=== PATIENT | male | born 1955 | race Caucasian/White ===

== ENCOUNTER 2021-12-25 12:30 | Emergency (ER) | payer OTHER, SELFPAY ==
[2021-12-25 12:41] VITALS: BP 183/86; PULSE 86; RESP 16; TEMP 36.9; O2SAT 98
[2021-12-25 13:20] VITALS: BP 183/86; PULSE 86; RESP 16; TEMP 36.9; O2SAT 98
--- NOTE | 2021-12-25 13:34 | ED.BACK ---
HPI - Back Pain/Injury General Chief Complaint: Back Pain/Injury Stated Complaint: severe back pain Time Seen by Provider: 12/25/21 13:10 Source: patient and RN notes reviewed Mode of arrival: ambulatory Limitations: no limitations History of Present Illness HPI Narrative: Patient presents today complaining of left-sided low back pain x5 days, that is now radiating to the left thigh. Patient was seen last week by his PCP who put him on some muscle relaxers. He went into the office 2 days ago and was given a Kenalog shot, which has not helped. Currently rates his pain 7/10 and has been taking Aleve as well as some muscle relaxers without much relief. Pain increases with walking and movement. Denies numbness or tingling in the extremities. Denies any loss of bowel or bladder control. States that over the last month he has been experiencing some left-sided low back pain that has been increasing while using his rowing machine. He used to be able to use the machine for 30 minutes, but was recently now down only to 10 minutes before he had to stop. Denies any other recent injury or trauma. MD elicited complaint: back pain Related Data Home Medications Medication Instructions Recorded Confirmed amlodipine-atorvastatin tablet 12/25/21 atenolol 12/25/21 insulin aspart U-100 [Novolog SUBCUT 12/25/21 Flexpen U-100 Insulin] insulin glargine [Lantus Solostar SUBCUT 12/25/21 U-100 Insulin] quinapril-hydrochlorothiazide tablet 12/25/21 sertraline mg 12/25/21 tizanidine mg 12/25/21 Allergies Allergy/AdvReac Type Severity Reaction Status Date / Time No Known Allergies Allergy Verified 12/25/21 12:49 Review of Systems Review of Systems: CONSTITUTIONAL: Denies body aches, fever, chills, or sweats. EYES: Denies visual changes, redness, or discharge. ENT: Denies rhinorrhea, congestion, sore throat, or otalgia. CARDIOVASCULAR: Denies chest pain, palpitations, or edema. RESPIRATORY: Denies cough or dyspnea. GASTROINTESTINAL: Denies abdominal pain, nausea, vomiting, or diarrhea. GENITOURINARY: Denies dysuria or hematuria. SKIN: Denies rash, itching, or wounds. MUSCULOSKELETAL: Denies joint pain, or myalgia.+ Low back pain NEUROLOGIC: Denies headache, numbness, tingling, or weakness. PSYCH: Denies depression or anxiety. [facility] Past Medical History Medical History (Updated 12/25/21 @ 15:38 by Rosa Isela Ogden, [facility], ) High cholesterol Hypertension Type 1 diabetes Comments At time of signature, I have reviewed and agree with nursing past medical, surgical, social and family history unless otherwise noted. Please see nursing chart for further information. There is no relevant family history pertinent to the presenting complaint Exam Narrative: GENERAL: Well-appearing, well-nourished, and in no acute distress. HEAD: Normocephalic, atraumatic. EYES: EOMI. No redness or drainage. Conjunctivae normal. ENT: Mucous membranes pink and moist. NECK: Normal AROM. CHEST: No respiratory distress. MUSCULOSKELETAL: No bony tenderness of the spine. 2 rather large palpable muscle spasms to the left lower lumbar paraspinal musculature. Muscle tenderness extends to the left SI joint. Saddle sensation intact. Distal sensation intact. Capillary refill normal. Strength normal bilaterally. EXTREMITIES: Normal range of motion. No edema. SKIN: Warm, dry, no rash. Capillary refill normal. Normal skin turgor. NEURO: No focal deficits. Alert and oriented x3. Gait steady. PSYCH: Normal affect. No signs of depression or anxiety. Course Course Emergency Course: Discussed with patient that since the Kenalog did not help, we could start him on a short course of oral steroid, with the understanding that this would raise his blood sugar for short period of time. He has agreed. We will also prescribe him a short course of some pain medication to take in conjunction with his muscle relaxers. Level of Care: Express Care Visit Dottie
== END 2021-12-25 13:40 | disposition home or self-care (01) ==
PROVIDERS: Emergency Provider Nurse Practitioner
DX: M54.42 Lumbago with sciatica, left side (principal); E78.00 Pure hypercholesterolemia, unspecified; I10 Essential (primary) hypertension; E10.9 Type 1 diabetes mellitus without complications
CPT/HCPCS: 99203; G0463

== ENCOUNTER 2022-10-05 12:25 | Outpatient (CLI) | payer OTHER, SELFPAY ==
--- NOTE | 2022-10-05 13:38 | ECG_ITS ---
Measurements Intervals Hermann Rate: 72 P: 46 NE: 191 QRS: 48 QRSD: 87 T: 39 QT: 383 QTc: 421 Interpretive Statements SINUS RHYTHM VENTRICULAR PREMATURE COMPLEX BASELINE ARTIFACT- I, II, III, AVR, AVL, AVF BORDERLINE ECG NO PREVIOUS ECG AVAILABLE FOR COMPARISON Electronically Signed On 10-05-2022 13:51:34 LEARNING FACILITATOR by Albert Jordan D.O.
[2022-10-05 14:59] LABS: Anion Gap 4 mmol/L (8-16); Blood Urea Nitrogen 15 mg/dL (9-20); Calcium 8.8 mg/dL (8.4-10.2); Carbon Dioxide 35 mmol/L (22-30); Chloride 92 mmol/L (98-107); Estimated Glomerular Filt Rate > 60; Glucose 104 mg/dL (65-110); Potassium 3.3 mmol/L (3.4-5.0); Sodium 131 mmol/L (137-145)
== END 2022-10-05 12:26 | disposition home or self-care (01) ==
LOC: ANHSURGERY 13:29
PROVIDERS: Anesthesiology; PCP Internal Medicine; Visit Provider Surgery
DX: K40.90 Unilateral inguinal hernia, without obstruction or gangrene, not specified as recurrent (principal); E10.9 Type 1 diabetes mellitus without complications; I10 Essential (primary) hypertension; Z01.818 Encounter for other preprocedural examination; R94.31 Abnormal electrocardiogram [ECG] [EKG]
CPT/HCPCS: 36415; 80048; 86850; 86900; 86901; 93005

== ENCOUNTER 2022-10-11 00:06 | Day surgery (SDC) | payer OTHER, SELFPAY ==
[2022-10-04 15:39] VITALS: BMI 25.2
--- NOTE | 2022-10-04 16:12 | PC.NURSE ---
Report to the Outpatient Waiting Room, entrance under the green pavilion located off [facility], at time _12:00PM on date __10/11/22 . Planned Procedure Time: __2:00PM . Time changes happen often and if your time is changed the preop area will call you the afternoon before. - You and your visitor will be asked to self-screen and do not enter if you have any COVID symptoms. - Only one visitor is requested with a max of two and NO children visitors are allowed at this time. - The patient visitor may be requested to leave or wait in car when not with patient due to distancing restrictions. - A mask is optional within the hospital. Patients may have clear liquids (water, carbonated beverages, clear teas, apple juice) until 3 hours prior to surgery with a maximum of 20 ounces. - No food from midnight until time of surgery Take the following medications with a SIP of water the morning of surgery: ___AMLODIPINE, ATENOLOL, SERTRALINE, CAN TAKE 1/2 AM INSULIN(WHICH IS SLIDING SCALE) Medications to discontinue per physician HOLD ALL VITAMINS/SUPPLEMENTS 3 DAYS PRE-OP Date to take last dose____10/07/22 Please no make-up, nail citizen of [place], hairspray, perfume, deodorant, or body powder the day of surgery. No jewelry (including any body piercings) or valuables the day of surgery, leave them at home. Please take a shower or bath the night before, or the morning of, surgery with an antibacterial soap. Wear comfortable, loose fitting clothing. Children are encouraged to wear pajamas. - Jewelry must be removed prior to entering the operating room. Rings and piercings that are not removed may be cut off. - The hospital will not accept responsibility for valuables. - Please leave all valuables, including medications, at home the day of surgery. If you are going home after surgery, a licensed hazmat cdl driver must drive you home. - NO public transportation without another adult if you receive anesthesia. - We recommend that an adult stay with you for 24 hours following discharge. - We also recommend that you do not drive, make important decision, drink alcoholic beverages, or take any drugs that were not prescribed by your health care provider for at least 24 hours after your discharge time. Follow any additional instructions given to you from your surgeon. HIBICLENS SHOWER MORNING OF SURGERY If you or anyone in your household have experienced Covid symptoms in the past week, please notify your surgeon or the nurse liaison at the phone number below for possible testing. Telephone instructions given to _PATIENT and asked if any additional questions and then verbalized understanding. Patient advised to call surgeon office or pre surgery nurse liaison [phone] if any additional questions.
--- NOTE | 2022-10-10 09:27 | WPDANESEPPF ---
Anes - Initial Pre Proc Eval Procedure: Operation Date: 10/11/22 14:00 Proposed Procedures p Laparoscopic Right Inguinal Hernia Repair with Mesh Davinci Assisted - Nick Conner DO Date/Time: 10/10/22 09:27 Surgeon: Nick Conner DO Pre Op Diagnosis: right inguinal hernia Patient Data Age: 67 Gender: M Height: 1.8 m Weight: 82 kg Allergies Allergy/AdvReac Type Severity Reaction Status Date / Time No Known Allergies Allergy Verified 10/11/22 12:03 Home Medications Medication Instructions Recorded Confirmed Type amlodipine 10 mg-atorvastatin 10 1 tablet PO QAM 12/25/21 10/11/22 History mg tablet atenolol 25 mg tablet 50 mg PO QAM 12/25/21 10/11/22 History insulin aspart U-100 100 unit/mL See Rx Instructions .Route .COMPLEX 12/25/21 10/11/22 History (3 mL) subcutaneous pen (Novolog FlexPen U-100 Insulin aspart) insulin glargine 100 unit/mL (3 28 unit subcut HS 12/25/21 10/11/22 History mL) subcutaneous pen (Lantus Solostar U-100 Insulin) quinapril 20 3 tablet PO QAM 12/25/21 10/11/22 History mg-hydrochlorothiazide 12.5 mg tablet sertraline 50 mg tablet 50 mg PO QAM 12/25/21 10/11/22 History cholecalciferol (vitamin D3) 125 125 mcg PO DAILY 06/26/22 10/11/22 History mcg (5,000 unit) capsule docusate sodium 100 mg capsule 100 mg PO DAILY 06/26/22 10/11/22 History (Colace) gabapentin 300 mg capsule 300 mg PO HS 06/26/22 10/11/22 History multivitamin 1 tablet PO DAILY 06/26/22 10/11/22 History omega 2-kho-ocb-fish oil 1,000 mg 1 cap PO DAILY 06/26/22 10/11/22 History (120 mg-180 mg) capsule (Fish Oil) potassium chloride 10 mEq 10 meq PO DAILY 06/26/22 10/11/22 History tablet,extended release auitojzn-cjj-K. coag-B. 1 tablet PO DAILY 10/04/22 10/11/22 History subtilis-inulin 1 billion cell-1 gram chew tab (Culturelle Probiotic-Multivit) Patient hx anesthesia problems: none Family hx anesthesia problems: none Results Review: All pre-operative results and documents have been reviewed as part of the pre-operative evaluation. [facility] Past Medical History Medical History (Updated 10/10/22 @ 09:27 by Nando Martin DO) Anxiety Depression High cholesterol Hypertension Prostate cancer Type 1 diabetes Surgical History Surgical History (Updated 07/04/22 @ 10:14 by Danielle Del Cid) H/O left inguinal hernia repair Open repair. December 2021, [facility] History of prostate surgery prostate brachytherapy History of tonsillectomy Family History Family History Father Diabetes mellitus Heart disease Malignant neoplasm of prostate Mother Heart disease Cerebrovascular accident Hypertension Social History Social History Smoking status: Never smoker Alcohol intake: former Substance use: never Living arrangements: alone Spiritual care concerns: No Anes - Eval Final PreProcedure Day of Procedure 10/10/22 09:27 Patient weight: overweight Heart: regular rate and rhythm Lungs: clear to auscultation Airway: Mallampati scale class 1 Neurological: alert and oriented Last oral intake: >/= 8 hours ASA classification: III Emergent: no Anesthetic plan: proceed Anesthesia type and monitoring: general ETT and standard monitoring Results Review: All pre-operative results and documents have been reviewed as part of the pre-operative evaluation. Informed Consent: The patient's anesthetic plan and its attendant risks and benefits were discussed with the patient/family/POA. Questions were solicited and answers provided to the satisfaction of the patient/family/POA.
[2022-10-11] VITALS (9 sets, daily range): BP systolic 108–168; BP diastolic 60–83; PULSE 73–82; RESP 15–20; TEMP 36.7–37.3; O2SAT 95–100
[2022-10-11] MEDS: ACETAMINOPHEN 500 MG TABLET 1000 MG PO (12:28)
[2022-10-11] MEDS: LACTATED RINGERS 1,000 ML 30 ML IV CONT ×2 (12:35→15:14)
[2022-10-11] MEDS: KETOROLAC 15 MG/ML VIAL (*BKC) IV PUSH (12:38)
[2022-10-11 12:41] LABS: Glucose Point of Care 160 mg/dl (65-105)
--- NOTE | 2022-10-11 13:16 | WPDHPUPDATE1 ---
History and Physical Update Update Date/Time: 10/11/22 13:16 History and Physical has been reviewed, including an updated exam of the patient. There are NO changes in the patient's condition. Risks, benefits, and alternatives have been discussed and questions answered. Patient agrees to proceed with procedure.
--- NOTE | 2022-10-11 13:16 | PM.IMHP ---
H&P: HPI History of Present Illness Date/Time: 10/11/22 13:16 Chief Complaint: Right inguinal hernia Narrative: This is a 67-year-old man who presents for right inguinal hernia repair. He was seen in the office in July now presents for surgery. He denies any changes since last seen in the office. Review of Systems Review of Systems: All systems reviewed & are unremarkable except as noted in HPI and below Constitutional: Constitutional: Denies chills, Denies fever(s), Denies headache(s) and Denies weight loss Eyes: Eyes: Denies change in vision ENT: Denies dizziness, Denies headache(s), Denies neck mass and Denies throat swelling Cardiovascular: Cardiovascular: Denies chest pain, Denies lightheadedness and Denies dyspnea Respiratory: Respiratory: Denies cough, Denies dyspnea and Denies wheezing Gastrointestinal: Gastrointestinal: Denies abdominal pain, Denies change in bowel habits, Denies nausea and Denies vomiting Genitourinary: Genitourinary: Denies hematuria and Denies dysuria Musculoskeletal: Musculoskeletal: Reports as per HPI Integumentary/Breasts: Skin/Breast: Reports as per HPI Neurologic: Denies dizziness and Denies headache(s) Allergic/Immunologic: Allergic/Immunologic: Denies throat swelling and Denies wheezing [facility] Past Medical History Medical History (Updated 10/10/22 @ 09:27 by Nando Martin DO) Anxiety Depression High cholesterol Hypertension Prostate cancer Type 1 diabetes Surgical History Surgical History (Updated 07/04/22 @ 10:14 by Danielle Del Cid) H/O left inguinal hernia repair Open repair. December 2021, [facility] History of prostate surgery prostate brachytherapy History of tonsillectomy Family History Family History Father Diabetes mellitus Heart disease Malignant neoplasm of prostate Mother Heart disease Cerebrovascular accident Hypertension Social History Social History Smoking status: Never smoker Alcohol intake: former Substance use: never Living arrangements: alone Spiritual care concerns: No Meds Home Medications and Allergies Home Medications Medication Instructions Recorded Confirmed Type amlodipine 10 mg-atorvastatin 10 1 tablet PO QAM 12/25/21 10/11/22 History mg tablet atenolol 25 mg tablet 50 mg PO QAM 12/25/21 10/11/22 History insulin aspart U-100 100 unit/mL See Rx Instructions .Route .COMPLEX 12/25/21 10/11/22 History (3 mL) subcutaneous pen (Novolog FlexPen U-100 Insulin aspart) insulin glargine 100 unit/mL (3 28 unit subcut HS 12/25/21 10/11/22 History mL) subcutaneous pen (Lantus Solostar U-100 Insulin) quinapril 20 3 tablet PO QAM 12/25/21 10/11/22 History mg-hydrochlorothiazide 12.5 mg tablet sertraline 50 mg tablet 50 mg PO QAM 12/25/21 10/11/22 History cholecalciferol (vitamin D3) 125 125 mcg PO DAILY 06/26/22 10/11/22 History mcg (5,000 unit) capsule docusate sodium 100 mg capsule 100 mg PO DAILY 06/26/22 10/11/22 History (Colace) gabapentin 300 mg capsule 300 mg PO HS 06/26/22 10/11/22 History multivitamin 1 tablet PO DAILY 06/26/22 10/11/22 History omega 7-nne-dya-fish oil 1,000 mg 1 cap PO DAILY 06/26/22 10/11/22 History (120 mg-180 mg) capsule (Fish Oil) potassium chloride 10 mEq 10 meq PO DAILY 06/26/22 10/11/22 History tablet,extended release yfiefnes-qng-S. coag-B. 1 tablet PO DAILY 10/04/22 10/11/22 History subtilis-inulin 1 billion cell-1 gram chew tab (Culturelle Probiotic-Multivit) Allergies Allergy/AdvReac Type Severity Reaction Status Date / Time No Known Allergies Allergy Verified 10/11/22 12:03 Vital Signs Vital Signs - 24 hr 10/11/22 12:03 Temperature 37.3 C Pulse Rate 75 Respiratory Rate 20 Blood Pressure 168/77 H Pulse Oximetry 99 Oxygen Delivery Room Air Exam Const:
[2022-10-11] MEDS: ceFAZolin 2 GM/D5W 50 ML 2 GM/50 ML BAG IVPB (13:47)
[2022-10-11] MEDS: BUPIVACAINE/EPINEPHRINE 0.5% 30 ML VIAL INFILTRATE (14:08)
--- NOTE | 2022-10-11 15:07 | W.PM.PROC2 ---
Procedure Note - Detailed Date of Procedure 10/11/22 Pre-op Diagnosis right inguinal hernia Post-op Diagnosis Same (Indirect right inguinal hernia) Procedure Performed Laparoscopic right inguinal hernia repair with mesh, da Jann assisted Surgeon Nick Conner DO Anesthesia General and Local (0.5% bupivacaine with epinephrine) Indications This is a 67-year-old man who presented with a right groin bulge that he noticed about 3 months ago. He was having some initial pain with this, but is no longer complaining of that. Bulge has gotten larger. He denies any change in bowel habits. Discussions were made with the patient about treatment options and decision was made to proceed with robotic assisted laparoscopic right inguinal hernia repair with mesh. Findings Laparoscopic right inguinal hernia repair was performed. The patient was found to have an indirect right inguinal hernia that initially was containing a loop of ileum. This appeared soft and easily reducible. The hernia was repaired using a large right Bard 3DMax mid mesh. A robotic transabdominal preperitoneal approach was utilized. The mesh was secured overlying the entire right myopectineal orifice. Description of Procedure Procedure as well as risks, benefits, and alternatives were discussed with the patient. Written consent was obtained and placed in chart prior to procedure. Patient was brought back to surgical suite. He was placed supine on operating table. Time-out was done to confirm patient and procedure. He was then intubated by Anesthesia Department. His abdomen was prepped and draped in sterile fashion using chlorhexidine prep. 0.5% bupivacaine with epinephrine was infiltrated at each location for incision. A 12 millimeter transverse incision was made just superior to the umbilicus using a 15 blade scalpel. Blunt dissection was carried out down to the linea alba. A vertical incision was made at the linea alba using a 15 blade scalpel. The peritoneum was then bluntly entered. A 12 millimeter trocar was inserted and carbon dioxide insufflation was used to create a pneumoperitoneum. A camera was inserted and the abdominal cavity was inspected. The patient was placed in slight Trendelenburg position. An 8 millimeter incision was made on the right lateral abdomen and an 8 millimeter trocar was inserted under direct visualization. Another 8 millimeter incision was made in the left lateral abdomen and an 8 millimeter trocar was inserted under direct visualization. The robotic arms were brought up to the patient's bedside and secured to the ports. The camera and instruments were inserted. I then moved over to the robotic console and took control of the camera and instruments. After careful inspection of the abdominal cavity, I began scoring the peritoneum along the right lower quadrant using scissors with electrocautery. The preperitoneal plane was entered and this was carefully dissected caudally along the inferior epigastric vessels. Careful dissection with scissors with electrocautery and blunt dissection was used to continue this dissection. I dissected far enough laterally to allow for mesh placement, and also dissected medially to identify the pubic arch and Lamin's ligament. The hernia sac was identified and carefully dissected posteriorly. The cord contents were also identified and the peritoneum was carefully dissected far enough posteriorly to allow for mesh placement. Once an adequate pocket was created, I then placed the mesh within the preperitoneal pocket and carefully unfolded it. The mesh was centered on the hernia defect with adequate overlap circumferentially. The inferior edge of the mesh was inspected to ensure that it was far enough away from the peritoneal edge. The mesh appeared in proper position overlying the entire myopectineal orifice. The mesh was secured using 3-0 Vicryl simple interrupted sutures in Lamin's ligament, the superior medial edge, and
[2022-10-11 15:28] LABS: Glucose Point of Care 241 mg/dl (65-105)
--- NOTE | 2022-10-11 17:16 | SUR.PHASEII ---
1720 PT MEETS ANESTHESIA DISCHARGE CRITERIA. PT DRESSED & WAITING ON HIS RIDE HOME.
== END 2022-10-11 17:45 | disposition home or self-care (01) ==
PROVIDERS: PCP Internal Medicine; Visit Provider Surgery
PROC: 8E0Y4CZ Robotic Assisted Procedure of Lower Extremity, Percutaneous Endoscopic Approach (ICD-10-PCS; CPT 49650; principal; 2022-10-11 14:00)
DX: K40.90 Unilateral inguinal hernia, without obstruction or gangrene, not specified as recurrent (principal); E10.9 Type 1 diabetes mellitus without complications; I10 Essential (primary) hypertension; E78.00 Pure hypercholesterolemia, unspecified; F41.9 Anxiety disorder, unspecified; F32.A Depression, unspecified; Z85.46 Personal history of malignant neoplasm of prostate; Z79.4 Long term (current) use of insulin
CPT/HCPCS: 49650; S2900; 36415; 80048; 82948; 86850; 86900; 86901; 93005; A9270; C1781; J0690; J1100; J1170; J1885; J2250; J2405; J2704; J2710; J3010; J7120

== ENCOUNTER 2022-10-23 10:01 | Outpatient (CLI) | payer OTHER, SELFPAY ==
[2022-10-23 11:37] LABS: Hemoglobin A1C 6.5 % (<5.7)
== END 2022-10-23 10:02 | disposition home or self-care (01) ==
PROVIDERS: PCP Internal Medicine; Visit Provider Urology
DX: N52.9 Male erectile dysfunction, unspecified (principal); Z01.818 Encounter for other preprocedural examination
CPT/HCPCS: 36415; 83036; 87086

== ENCOUNTER 2022-11-15 01:01 | Day surgery (SDC) | payer OTHER, SELFPAY ==
[2022-10-23 10:24] VITALS: BP 141/76; PULSE 71; RESP 16; TEMP 36.9; O2SAT 97; BMI 25.4
--- NOTE | 2022-10-23 10:37 | PC.NURSE ---
Report to the Outpatient Waiting Room, entrance under the green pavilion located off [facility], at time ___10:00AM____ on date ___11/15/22____. Planned Procedure Time: __12:00PM . Time changes happen often and if your time is changed the preop area will call you the afternoon before. - You and your visitor will be asked to self-screen and do not enter if you have any COVID symptoms. - Only one visitor is requested with a max of two and NO children visitors are allowed at this time. - The patient visitor may be requested to leave or wait in car when not with patient due to distancing restrictions. - A mask is optional within the hospital. Patients may have clear liquids (water, carbonated beverages, clear teas, apple juice) until 3 hours prior to surgery with a maximum of 20 ounces. - No food from midnight until time of surgery Take the following medications with a SIP of water the morning of surgery: ___AMLODIPINE, ATENOLOL, DOXAZOSIN, SERTRALINE Medications to discontinue per physician ____HOLD VITAMINS/SUPPLEMENTS 3 DAYS PRE-OP Date to take last dose____11/11/22 Please no make-up, nail jordanian, hairspray, perfume, deodorant, or body powder the day of surgery. No jewelry (including any body piercings) or valuables the day of surgery, leave them at home. Please take a shower or bath the night before, or the morning of, surgery with an antibacterial soap. Wear comfortable, loose fitting clothing. Children are encouraged to wear pajamas. - Jewelry must be removed prior to entering the operating room. Rings and piercings that are not removed may be cut off. - The hospital will not accept responsibility for valuables. - Please leave all valuables, including medications, at home the day of surgery. If you are going home after surgery, a licensed pizza driver must drive you home. - NO public transportation without another adult if you receive anesthesia. - We recommend that an adult stay with you for 24 hours following discharge. - We also recommend that you do not drive, make important decision, drink alcoholic beverages, or take any drugs that were not prescribed by your health care provider for at least 24 hours after your discharge time. Follow any additional instructions given to you from your surgeon. If you or anyone in your household have experienced Covid symptoms in the past week, please notify your surgeon or the nurse liaison at the phone number below for possible testing. Telephone instructions given to _PATIENT_and asked if any additional questions and then verbalized understanding. Patient advised to call surgeon office or pre surgery nurse liaison [phone] if any additional questions.
[2022-11-15] VITALS (9 sets, daily range): BP systolic 115–181; BP diastolic 54–98; PULSE 58–95; RESP 10–20; TEMP 36.3–36.8; O2SAT 93–99; BMI 25.2
[2022-11-15] MEDS: LACTATED RINGERS 1,000 ML 30 ML IV CONT ×2 (10:35→15:10)
[2022-11-15] MEDS: GENTAMICIN SULFATE INJ 415 MG in DEXTROSE 5% 100 ML 100 MG IVPB (10:35)
[2022-11-15 10:40] LABS: Sodium 134 mmol/L (137-145)
--- NOTE | 2022-11-15 10:44 | WPDANESEPPF ---
Anes - Initial Pre Proc Eval Procedure: Operation Date: 11/15/22 12:00 Proposed Procedures p Insertion Inflatable Penile Prosthesis - Nguyễn Fitch MD Date/Time: 11/15/22 10:44 Surgeon: Nguyễn Fitch MD Pre Op Diagnosis: ED Patient Data Age: 67 Gender: M Height: 1.8 m Weight: 82.6 kg Last Vital Signs Temp 36.9 C 10/23/22 10:24 Pulse 71 10/23/22 10:24 Resp 16 10/23/22 10:24 BP 141/76 H 10/23/22 10:24 Pulse Ox 97 10/23/22 10:24 O2 Del Method Room Air 10/23/22 10:24 Allergies Allergy/AdvReac Type Severity Reaction Status Date / Time No Known Allergies Allergy Verified 10/24/22 14:01 Home Medications Medication Instructions Recorded Confirmed Type amlodipine 10 mg-atorvastatin 10 1 tablet PO QAM 12/25/21 10/26/22 History mg tablet atenolol 25 mg tablet 50 mg PO QAM 12/25/21 10/26/22 History insulin aspart U-100 100 unit/mL See Rx Instructions .Route .COMPLEX 12/25/21 10/26/22 History (3 mL) subcutaneous pen (Novolog FlexPen U-100 Insulin aspart) quinapril 20 3 tablet PO QAM 12/25/21 10/26/22 History mg-hydrochlorothiazide 12.5 mg tablet sertraline 50 mg tablet 50 mg PO QAM 12/25/21 10/26/22 History cholecalciferol (vitamin D3) 125 125 mcg PO DAILY 06/26/22 10/26/22 History mcg (5,000 unit) capsule docusate sodium 100 mg capsule 100 mg PO DAILY 06/26/22 10/26/22 History (Colace) gabapentin 300 mg capsule 300 mg PO HS 06/26/22 10/26/22 History multivitamin 1 tablet PO DAILY 06/26/22 10/26/22 History omega 1-kxg-mvo-fish oil 1,000 mg 1 cap PO DAILY 06/26/22 10/26/22 History (120 mg-180 mg) capsule (Fish Oil) potassium chloride 10 mEq 10 meq PO DAILY 06/26/22 10/26/22 History tablet,extended release toflkoqt-oqv-F. coag-B. 1 tablet PO DAILY 10/04/22 10/26/22 History subtilis-inulin 1 billion cell-1 gram chew tab (Culturelle Probiotic-Multivit) doxazosin 2 mg tablet 2 mg PO QAM 10/23/22 10/26/22 History insulin glargine-yfgn 100 unit/mL 28 unit subcut HS 10/23/22 10/26/22 History (3 mL) subcutaneous pen (Semglee (insulin glargine-yfgn) Pen) Laboratory Tests 11/15/22 10:21 Sodium 134 mmol/L L mmol/L (137-145) Patient hx anesthesia problems: none Family hx anesthesia problems: none Results Review: All pre-operative results and documents have been reviewed as part of the pre-operative evaluation. [facility] Past Medical History Medical History Anxiety Depression High cholesterol Hypertension Prostate cancer Type 1 diabetes Surgical History Surgical History H/O left inguinal hernia repair Open repair. December 2021, [facility] History of prostate surgery prostate brachytherapy History of right inguinal hernia repair 10/11/2022 - laparoscopic right inguinal hernia repair with mesh, da Jann assited History of tonsillectomy Family History Family History Father Diabetes mellitus Heart disease Malignant neoplasm of prostate Mother Heart disease Cerebrovascular accident Hypertension Social History Social History Smoking status: Never smoker Alcohol intake: never Substance use: never Living arrangements: alone Occupation/Education: retired Spiritual care concerns: No Anes - Eval Final PreProcedure Day of Procedure 11/15/22 10:44 Patient weight: normal Heart: regular rate and rhythm Lungs: clear to auscultation Airway: Mallampati scale class II Neurological: alert and oriented Last oral intake: >/= 8 hours ASA classification: III Emergent: no Anesthetic plan: proceed Anesthesia type and monitoring: general LMA and standard monitoring Results Review: All pre-operative results and documents have been reviewed as part of the pre-oper
[2022-11-15 10:55] LABS: Glucose Point of Care 204 mg/dl (65-105)
--- NOTE | 2022-11-15 11:59 | WPDHPUPDATE1 ---
History and Physical Update Update Date/Time: 11/15/22 11:59 History and Physical has been reviewed, including an updated exam of the patient. There are NO changes in the patient's condition. Risks, benefits, and alternatives have been discussed and questions answered. Patient agrees to proceed with procedure.
[2022-11-15] MEDS: ceFAZolin SODIUM 1 GM VIAL (13:30)
[2022-11-15] MEDS: BUPivacaine HCL 0.25% PF 30 ML VIAL INFILTRATE (13:37)
[2022-11-15] MEDS: LIDOCAINE 1% BUFFERED WITH 8.4% SODIUM BICARB 1 ML SYRINGE 20 ML INFILTRATE (13:38)
--- NOTE | 2022-11-15 15:11 | W.PM.PROC2 ---
Procedure Note - Detailed Date of Procedure 11/15/22 Pre-op Diagnosis Erectile dysfunction Post-op Diagnosis Same Procedure Performed 1. Insertion of 3-piece inflatable penile prosthesis. 2. Artificial erection using pharmacological agent. Surgeon Nguyễn Fitch MD Anesthesia General Description of Procedure Informed consent obtained, patient taken to the operating room and given preoperative IV antibiotics with vancomycin and gentamicin. Additionally the patient has been taking oral levofloxacin and done a 3-day wash with Hibiclens. The patient was shaved. He was then prepped with Betadine scrub and paint followed by ChloraPrep. Sterile drapes were placed. We again prepped with ChloraPrep. A 16-Dominican Hahn catheter was inserted with return of clear urine. We then performed a pharmacologically induced erection with dilute lidocaine. There was a symmetric, straight erection. We then made a penoscrotal 3 cm incision. We dissected bluntly down to identify the corporal bodies taking great care not to injure the urethra. Stay sutures of 2-0 PDS were placed in the corporal body. We sharply opened the corpora. We then serially dilated up to a 12 Arroyo dilator. We then measured the corpora. Measurements were 11 cm proximally and 9.5 cm distally. We irrigated and there was no injury. We then performed an identical procedure on the contralateral side. Measurements were 10.5 cm proximal, 10 cm distal. As there was expandability of the corpora, we elected to place a total length of 21.5cm. We elected to place an AMS LGX device 18 cm + 3.5 cm of rear tip extenders. We again irrigated the corporal bodies. We then inserted the prosthesis. We inflated using a surrogate reservoir and the device sat nicely with tips in the mid glans, without significant curvature or bulging of the implant at the corporotomies. We then deflated. We then closed the pre-placed 2-0 PDS sutures. We again inflated using the surrogate reservoir with an excellent cosmetic result. We then made a left lower quadrant incision for approximately 2 cm over the patient's previous left inguinal hernia incision. We bluntly dissected down to the external oblique fascia. The fascia was opened. We then the rectus muscle and created a space superiorly in the sub rectus. We then irrigated copiously. We pre-placed 0 Vicryl sutures. We placed the reservoir in the sub rectus space. We fill it with 100 mL and there was no back pressure. We then left 92mL in the reservoir. Our pre-placed external oblique fascia sutures were closed. We then made a subdartos pouch in the midline for the pump placement. It sat nicely in the inferior scrotum. We then closed the hiatus with 3-0 Vicryl suture. The tubing was then brought up to the abdominal incision. Using the quick connect device, we connected the pump to the reservoir. We then cycled the device again and it functioned nicely. We then removed the stay sutures through the glans. We then again irrigated copiously. We closed the scrotal incision with multiple 3-0 Vicryl sutures and then 3-0 Monocryl skin closure. The left lower quadrant incision was closed with 2-0 Vicryl to Eulalio's, 3-0 Vicryl deep dermal layer and a 4-0 Monocryl subcuticular closure. Glue was placed over all incisions. A compressive dressing was placed. Patient was awakened and taken to recovery room in stable condition. IV FLUIDS Per anesthesia. COMPLICATIONS None. EBL Minimal. FOLLOWUP The patient will be discharged home with a Hahn catheter overnight. He will remove dressing and catheter tomorrow. Estimated Blood Loss 50 Pathology None sent Complications No immediate complications Condition Stable Disposition PACU
[2022-11-15 15:21] LABS: Glucose Point of Care 287 mg/dl (65-105)
--- NOTE | 2022-11-15 17:19 | ADMGEN ---
This patient, Zhen Gibson, was admitted to [facility] Surg Room 300-01. Patient/family oriented to hospital policies and general routines including ID bracelet, bed and alarms, visiting hours, pain management, procedures, bathroom and other care routines, personal items, smoking policy, room service/diet, and visiting hours. Information on how to activate the Rapid Response Team has been discussed. Patient/Family are encouraged to report perceived risks to care and to ask questions if they do not understand what they are told or what they should do.
[2022-11-15] MEDS: INSULIN ASPART (*BKC) 100 UNITS/ML SUB-Q (18:00)
[2022-11-15 18:01] LABS: Glucose Point of Care 268 mg/dl (65-105)
[2022-11-15] MEDS: HYDROcodone/acetaminophen (*CRX) 5-325 MG TABLET 1 TAB PO ×2 (18:06→23:34)
[2022-11-15 19:42] LABS: Glucose Point of Care 249 mg/dl (65-105)
[2022-11-15] MEDS: INSULIN GLARGINE (*BKC) 100 UNITS/ML 28 UNITS SUB-Q (21:27)
[2022-11-15] MEDS: GABAPENTIN 300 MG CAPSULE PO (21:30)
[2022-11-15 23:50] LABS: Glucose Point of Care 273 mg/dl (65-105)
[2022-11-16 02:19] VITALS: BP 150/73; PULSE 90; RESP 17; TEMP 36.4; O2SAT 99
[2022-11-16 06:00] VITALS: BP 153/76; PULSE 82; RESP 17; TEMP 36.3; O2SAT 98
--- NOTE | 2022-11-16 07:24 | WPDUROPN2 ---
Progress Note: A&P Assessment and Plan (1) Erectile dysfunction: Code(s): N52.9 - Male erectile dysfunction, unspecified Status: Acute Assessment and Plan: Doing well POD#1 s/p placement IPP Genitalia on wrapped in catheter removed. Discharge later this morning. Subjective Subjective Date/Time Seen: 11/16/22 07:24 Comfortable, no complaints Review of Systems Cardiovascular: Cardiovascular: Denies chest pain, Denies lightheadedness, Denies palpitations and Denies dyspnea Respiratory: Respiratory: Denies dyspnea Gastrointestinal: Gastrointestinal: Denies diarrhea, Denies nausea and Denies vomiting Genitourinary: Genitourinary: Denies hematuria and Denies dysuria Endocrine: Endocrine: Denies palpitations Exam Const: General: no acute distress Resp: Effort & Inspection: normal respiratory effort GI: Inspection: non-distended GI Palp: No abdominal tenderness and No Guarding due to palpation present (GI) Auscultation: normal bowel sounds Objective Data Vital Signs Vital Signs: Vital Signs - 24 hr 11/15/22 09:52 11/15/22 15:10 11/15/22 15:25 Temperature 98.1 F 97.4 F L Pulse Rate 72 75 90 Respiratory Rate 14 10 L 12 Blood Pressure 181/98 H 117/64 115/59 L Pulse Oximetry 98 97 99 Oxygen Delivery Room Air Simple Face Mask Simple Face Mask Oxygen Flow Rate 10 10 11/15/22 15:40 11/15/22 15:55 11/15/22 16:10 Temperature 97.6 F Pulse Rate 58 L 89 85 Respiratory Rate 16 17 11 L Blood Pressure 115/54 L 142/80 H 144/78 H Pulse Oximetry 93 93 99 Oxygen Delivery Room Air Room Air Room Air Oxygen Flow Rate 11/15/22 16:25 11/15/22 18:19 11/15/22 22:00 Temperature 97.8 F 98.2 F Pulse Rate 85 87 95 Respiratory Rate 20 20 17 Blood Pressure 150/68 H 145/65 H 149/72 H Pulse Oximetry 96 98 95 Oxygen Delivery Room Air Oxygen Flow Rate 11/15/22 21:30 11/16/22 02:19 11/16/22 06:00 Temperature 97.6 F 97.4 F L Pulse Rate 90 82 Respiratory Rate 17 17 Blood Pressure 150/73 H 153/76 H Pulse Oximetry 99 98 Oxygen Delivery Room Air Oxygen Flow Rate Intake/Output Intake/Output: Intake & Output 11/13/22 11/14/22 11/15/22 11/16/22 23:59 23:59 23:59 23:59 Intake Total 800.375 Output Total 325 825 Balance 475.375 -825 Meds/Results Medications: Active Medications Generic Name Dose Route Start Last Admin Trade Name Freq PRN Reason Stop Dose Admin Hydrocodone Bitart/Acetaminophen 1 tab 11/15/22 16:34 11/15/22 23:34 Hydrocodone/Acetaminophen (*Crx) 5-325 Mg Tablet PO 1 tab Q4H PRN Administration Pain Rated 1-6 Amlodipine Besylate 10 mg 11/16/22 09:00 Amlodipine Besylate 5 Mg Tablet PO 12/16/22 08:59 QAM [facility] Atenolol 50 mg 11/16/22 09:00 Atenolol 50 Mg Tablet PO QAM [facility] Atorvastatin Calcium 10 mg 11/16/22 09:00 Atorvastatin 10 Mg Tablet PO 12/16/22 08:59 QAM [facility] Dextrose 12.5 gm 11/15/22 16:34 Dextrose 50% 25 Gm/50 Ml Syringe IV PUSH PRN PRN Hypoglycemia Protocol Docusate Sodium 100 mg 11/16/22 09:00 Docusate Sodium 100 Mg Capsule PO DAILY [facility] Doxazosin Mesylate 2 mg 11/16/22 09:00 Doxazosin Mesylate 2 Mg Tablet PO QAM [facility] Gabapentin 300 mg 11/15/22 21:00 11/15/22 21:30 Gabapentin 300 Mg Capsule PO 300 mg [facility] Administration Glucagon 1 mg 11/15/22 16:34 Glucagon For Inj 1 Mg Vial IM PRN PRN Hypoglycemia Protocol Glucose 15 gm 11/15/22 16:34 Glucose Oral Gel 15 Gm Of Glucse In 37.5 Gm Tube PO PRN PRN Hypoglycemia Protocol Hydrochlorothiazide 37.5 mg 11/16/22 09:00 Hydrochlorothiazide 12.5 Mg Capsule PO 12/16/22 08:59 QAM [facility] Gentamicin Sulfate/Sodium Chloride 80 mg in 50 mls @ 100 mls/hr 11/16/22 10:30 Gentamicin 80mg/Sod Chl 50 Ml IVPB 11/16/22 10:59 ONCE ONE Vancomycin HCl 1,000 mg in 250 mls @ 250 mls/hr 11/15/22 22:00 11/15/22 21:30 Vancomycin 1
[2022-11-16 07:45] LABS: Glucose Point of Care 188 mg/dl (65-105)
[2022-11-16] MEDS: levoFLOXacin 500 MG TABLET PO (09:21)
[2022-11-16] MEDS: hydroCHLOROthiazide 12.5 MG CAPSULE 37.5 MG PO (09:21)
[2022-11-16] MEDS: DOCUSATE SODIUM 100 MG CAPSULE PO (09:21)
[2022-11-16] MEDS: ATORVASTATIN 10 MG TABLET PO (09:21)
[2022-11-16] MEDS: DOXAZOSIN MESYLATE 2 MG TABLET PO (09:22)
[2022-11-16] MEDS: atenoloL 50 MG TABLET PO (09:22)
[2022-11-16] MEDS: amLODIPine BESYLATE 5 MG TABLET 10 MG PO (09:22)
--- NOTE | 2022-11-16 09:22 | WPDANESPN ---
Anes - Prog Note Post-Op Date/Time: 11/16/22 09:22 Cardiovascular status: normal Respiratory status: normal Airway patency: baseline Mental status: baseline Post-Op hydration status: normal Vital Signs: Last Vital Signs Temp 97.4 F L 11/16/22 06:00 Pulse 82 11/16/22 06:00 Resp 17 11/16/22 06:00 BP 153/76 H 11/16/22 06:00 Pulse Ox 98 11/16/22 06:00 O2 Del Method Room Air 11/15/22 21:30 O2 Flow Rate 10 11/15/22 15:25 Pain Score (VAS): 5 I/O: Intake & Output 11/15/22 11/16/22 11/16/22 23:59 07:59 15:59 Intake Total 440 Output Total 325 825 Balance 115 -825 Laboratory Tests 11/15/22 10:21 11/15/22 11/15/22 11/15/22 10:21 10:52 15:18 Sodium 134 L POC Capillary Glucose 204 H 287 H 11/15/22 11/15/22 11/15/22 17:56 19:38 23:44 Sodium POC Capillary Glucose 268 H 249 H 273 H 11/16/22 07:43 Sodium POC Capillary Glucose 188 H Post-procedural complaints: none Patient Feedback: Patient satisfied with anesthetic care.
[2022-11-16] MEDS: MULTIVITAMINS THERAPEUTIC TAB (*BKC) 1 TABLET PO (09:23)
[2022-11-16] MEDS: SERTRALINE HCL 50 MG TABLET PO (09:23)
[2022-11-16] MEDS: lisinopriL 20 MG TABLET 60 MG PO (09:23)
[2022-11-16] MEDS: HYDROcodone/acetaminophen (*CRX) 5-325 MG TABLET 1 TAB PO (09:24)
[2022-11-16] MEDS: GENTAMICIN 80MG/SOD CHL 50 ML 80 MG/50 ML BAG 100 MG IVPB (09:31)
[2022-11-16 11:39] LABS: Glucose Point of Care 257 mg/dl (65-105)
[2022-11-16 13:40] VITALS: BP 154/75; PULSE 89; RESP 12; TEMP 36.5; O2SAT 93
== END 2022-11-16 14:10 | disposition home or self-care (01) ==
LOC: ANHSURGERY 09:29 → ANH3MEDSUR 16:39
PROVIDERS: Anesthesiology; PCP Internal Medicine; Visit Provider Urology
PROC: (CPT 54405; principal; 2022-11-15 12:00)
DX: N52.9 Male erectile dysfunction, unspecified (principal); E10.9 Type 1 diabetes mellitus without complications; I10 Essential (primary) hypertension; E78.00 Pure hypercholesterolemia, unspecified; F41.9 Anxiety disorder, unspecified; F32.A Depression, unspecified; Z85.46 Personal history of malignant neoplasm of prostate; Z79.4 Long term (current) use of insulin
CPT/HCPCS: 54405; 54235; 36415; 82948; 83036; 84295; 87086; A9270; C1813; J0690; J1170; J1580; J1815; J2250; J2405; J2704; J3010; J3370; J7030; J7120

== ENCOUNTER 2025-05-21 12:46 | Outpatient (CLI) | payer OTHER, SELFPAY ==
--- NOTE | ~2025-05-21 | CT_ITS ---
Non-contrast CT scan of the Pelvis Clinical indication: Right lower quadrant pain, inguinal hernia Technique: 2.5 mm axial scans were obtained through the pelvis without intravenous or oral contrast. Dose reduction technique was used on this scan by utilizing automated exposure control and iterative reconstruction technique. The dose-length product (DLP) was 613.18 mGy-cm. Findings: Left inguinal hernia contains a focal portion of the proximal sigmoid colon. No evidence for bowel obstruction or bowel wall thickening. Urinary bladder unremarkable. Prostate gland radiation seeds are present. No pelvic or inguinal lymphadenopathy seen. Penile prosthesis present. Small right hydrocele noted. There is moderate degenerative spondylosis of the lower lumbar spine.. Impression: Left inguinal hernia contains a focal portion of the proximal sigmoid colon. No bowel obstruction or bowel wall thickening. No right inguinal hernia evident. Reviewed, dictated and finalized at [facility]. Impression: Left inguinal hernia contains a focal portion of the proximal sigmoid colon. No bowel obstruction or bowel wall thickening. No right inguinal hernia evident.
== END 2025-05-21 12:47 | disposition home or self-care (01) ==
LOC: MICIMG 12:47
PROVIDERS: PCP Surgery; Visit Provider Surgery
DX: R10.31 Right lower quadrant pain (principal); K40.90 Unilateral inguinal hernia, without obstruction or gangrene, not specified as recurrent
CPT/HCPCS: 72192

== ENCOUNTER 2025-07-18 13:43 | Emergency (ER) | payer OTHER, SELFPAY ==
--- NOTE | 2025-07-18 13:44 | ED_ITS ---
HPI - URI/Sore Throat General Chief Complaint: Upper Respiratory Infection Stated Complaint: Sore Throat Time Seen by Provider: 07/18/25 13:44 Source: patient Mode of arrival: ambulatory Limitations: no limitations History of Present Illness HPI Narrative: Patient is a 69-year-old male who presents with 5 days of headache, sore throat and cough. Patient is scheduled for colonoscopy on Sunday and needs to be danna red from illness. States his symptoms are improving. Denies any fever, chills, nausea, vomiting, diarrhea. Related Data Home Medications ?Medication ?Instructions ?Recorded ?Confirmed ?Last Taken ?Type amlodipine 10 mg-atorvastatin 10 1 tablet PO QAM 12/2505/15/25 11/15/22 History mg tablet atenolol 25 mg tablet 50 mg PO QAM 12/25/2111/15/22 History quinapril 20 3 tablet PO QAM 12/25/2110/10/22 History mg-hydrochlorothiazide 12.5 mg tablet sertraline 50 mg tablet 50 mg PO QAM 12/25/2111/15/22 History cholecalciferol (vitamin D3) 125 125 mcg PO DAILY 06/0205/15/25 10/07/22 History mcg (5,000 unit) capsule gabapentin 300 mg capsule 300 mg PO HS 06/26/2210/10/22 History multivitamin 1 tablet PO DAILY 06/26/22 0 05/15/25 10/07/22 History omega 5-nza-hry-fish oil 1,000 mg 1 cap PO DAILY 06/2605/15/25 10/07/22 History (120 mg-180 mg) capsule (Fish Oil) Held on 11/16/22. Instructions: Resume on 11/19/22. potassium chloride 10 mEq 10 meq PO DAILY 06/26/2210/10/22 History tablet,extended release [id number]-[id number]. coag-B. 1 tablet PO DAILY 10/04/22 0 05/15/25 10/10/22 History subtilis-inulin 1 billion cell-1 gram chew tab (Culturelle Probiotic-Multivit) doxazosin 2 mg tablet 2 mg PO QAM 10/23/22 5 11/15/22 History insulin glargine U-300 conc 300 unit subcut 07/18/25 Unknown History unit/mL (3 mL) subcutaneous pen (Toujeo Max U-300 SoloStar) insulin lispro 100 unit/mL subcut 07/18/25 Unknown Hi story subcutaneous pen (Humalog KwikPen (U-100) Insulin) losartan 100 tablet 07/18/25 Unknown His tory mg-hydrochlorothiazide 25 mg tablet Allergies Allergy/AdvReac Type Severity Reaction Status Date / Time No Known Allergies Allergy Verified 07/18/25 14:02 Review of Systems Review of Systems: All systems reviewed & are unremarkable except as noted in HPI and below Constitutional: Constitutional: Denies chills, Denies fatigue, Denies fever(s), Reports headache(s), Denies malaise and Denies weakness Eyes: Eyes: Denies blurry vision, Denies itchy eyes and Denies loss of vision ENT: Denies otalgia, Reports headache(s), Denies nasal congestion, Denies sinus pain and Reports sore throat Cardiovascular: Cardiovascular: Denies chest pain, Denies irregular heart rhythm and Denies dyspnea Respiratory: Respiratory: Reports cough and Denies dyspnea Gastrointestinal: Gastrointestinal: Denies abdominal pain, Denies diarrhea, Denies nausea and Denies vomiting Musculoskeletal: Musculoskeletal: Denies back pain, Denies myalgias and Denies arthralgias Integumentary/Breasts: Skin/Breast: Denies pruritus and Denies rash Neurologic: Reports headache(s), Denies loss of vision and Denies weakness Psychiatric: Psychiatric: Reports no additional psychiatric complaints Endocrine: Endocrine: Denies fatigue Allergic/Immunologic: Allergic/Immunologic: Denies itchy eyes PMFSH Past Medical History Medical History Depression Anxiety Prostate cancer Hypertension High cholesterol Type 1 diabetes Surgical History Surgical History History of right inguinal hernia repair 10/11/2022 - laparoscopic right inguinal hernia repair with mesh, da Jann assited History of prostate surgery prostate brachytherapy History of tonsillectomy H/O left inguinal hernia repair Open repair. December 2021, [facility] [place] Family History Family History Father Diabetes mellitus Heart disease Malignant neoplasm of prostate Mother Heart disease Cerebrovascular accident Hypertension Social History Social History Smoking status: Never smoker Alcohol intake: never Substance use: never Lack of Transportation: No Lack of Food: Never True Current Housing: Decline to Answer Concerned About Future Housing: Decline to Answer Difficulty Paying Gas/Electric Bills: Decline to Answer Difficulty Paying for Meds: Decline to Answer Currently Unemployed: Decline to Answer Education: Decline to Answer Difficulty w/ Childcare or Family Care: Decline to Answer Living arrangements: alone Occupation/Education: retired Spiritual care concerns: No Comments At time of signature, agree with nursing past medical, surgical, social and family history. There is no relevant family history pertinent to the presenting complaint. Exam Const: General: cooperative, healthy appearing, comfortable, no acute distress and well nourished Nutritional Appearance: well nourished Orientation/consciousness: patient oriented x3 Limitations: no limitations HENMT: Head: normal to inspection, normocephalic and atraumatic Ears: hearing grossly normal bilaterally, external ears normal, TM's normal bilaterally, EAC's normal and no periauricular adenopathy Face/Nose/Sinus: Normal external nose present, Abnormal mucous membranes and turbinates present erythematous bilateral and diffuse, normal facial exam, sinuses nontender and face symmetric Face and sinus: normal facial exam, sinuses nontender and face symmetric Mouth: Yes Normal oral and palatal mucosa present, Yes lip normal, Yes tongue normal, Yes Normal salivary glands and ducts present, Yes oropharynx normal and Yes moist mucous membranes Teeth and gingiva: dentition normal Throat: posterior oropharynx normal, tonsils normal and uvula midline Eyes: General: appearance normal, both eyes and all related structures Alignment and Position: alignment normal and position normal Periorbital: periorbital findings normal Eyelids: eyelids normal Pupils: Equal, round and reactive pupils present Neck: Neck: normal visual inspection, full ROM, no lymphadenopathy and supple Chest: Chest palpation & inspection: normal inspection of the chest and normal palpation of entire chest wall Resp: Effort & Inspection: normal respiratory effort and able to speak in complete sentences Auscultation: clear to auscultation bilaterally, no crackles, no rales, no rhonchi and no wheezes Cardio: Rate: regular rate Rhythm: regular rhythm Heart sounds: S1 normal heart sound present and S2 normal heart sound present GI: Inspection: normal to inspection Skin: General skin exam: normal color and no rashes or lesions noted Neuro: General: patient oriented x3 and moves all extremities Cranial nerves: Yes Equal, round and reactive pupils present Speech: normal speech Gait exam (Neuro): Normal gait present Extrem: General: normal to inspection, full ROM and no edema Psych: Appearance: grossly normal and well kempt Mental Status: mental status grossly normal Speech and movement: Normal speech and movement present Affect: normal affect Attitude: cooperative Thought process: Normal thought process present Course Course Emergency Course: Discharge instructions reviewed with patient, as well as provided in writing per nursing staff. The instructions also include specific and strict return/GO TO THE ER as well as f/u information. All questions have been answered, and the patient deny any further questions with discharge and discharge plan. Portions of this record may have been created with voice recognition software Level of Care: Express Care Visit Vital Signs Vital signs: Vital Signs Temperature 36.7 C 07/18/25 13:56 Pulse Rate 82 07/18/25 13:56 Respiratory Rate 18 07/18/25 13:56 Blood Pressure 166/73 H 07/18/25 13:56 Pulse Oximetry 98 07/18/25 13:56 Oxygen Delivery Room Air 07/18/25 13:56 Temperature 36.7 C 07/18/25 13:56 Pulse Rate 82 07/18/25 13:56 Respiratory Rate 18 07/18/25 13:56 Blood Pressure 166/73 H 07/18/25 13:56 Pulse Oximetry 98 07/18/25 13:56 Oxygen Delivery Room Air 07/18/25 13:56 Reviewed MDM - URI/Sore Throat MDM Narrative Medical decision making narrative: Pt well hydrated appearing, in no respiratory distress, hemodynamically stable. Recommend supportive care. The patient is stable at time of discharge the clinical impression was discussed and the patient was given the opportunity to ask questions, which were addressed as completely as possible given the information available at present. Anticipatory guidance and return to care precautions were discussed and the importance of primary care follow-up was stressed and encouraged. The patient voiced understanding of the plan, indications to return, and the need for follow-up. Exam findings show no acute concerns or changes Patient is appropriate for outpatient treatment and follow-up. Differential diagnosis considered: Smith virus, strep pharyngitis, allergic rhinitis, upper respiratory tract infection, sinusitis, rhinosinusitis, nasopharyngitis. viral pharyngitis, otitis media, otitis externa, otitis effusion, foreign body, cerumen impaction, viral syndrome, and influenza.? Medical Records Attestation: I reviewed the patient's medical records. Lab Data Attestation: I reviewed the patient's lab results. Labs: Lab Results 07/18/25 Range/Units 13:53 POC Influenza A Ag Negative (Negative) POC Influenza B Ag Negative (Negative) POC SARS CoV-2 Ag Negative (Negative) POC Grp A Strep Screen Negative (Negative) Discharge Plan Discharge Clinical Impression: Upper respiratory infection Qualifiers: URI type: unspecified viral URI Qualified Code(s): J06.9 - Acute upper respiratory infection, unspecified Patient Disposition: Home Condition: Stable Instructions: Upper Respiratory Infection (ED) Additional Instructions: Your rapid strep swab was negative today at [facility]. A throat culture will be sent to the laboratory for further testing. If the test is positive, you will receive a phone call within 48 hours and an appropriate antibiotic will be initiated at that time. Your Covid and flu are both negative Your symptoms are likely due to a viral illness, which is not treated with antibiotics. Viral symptoms can be present for up to a few weeks. -For pain/fever, you may take: Tylenol 650-1000mg by mouth every 4-6 hours. Do not exceed 4000mg in 24 hours. Advil (Ibuprofen) 600 mg by mouth every 6 hours. Do not exceed 2400mg in 24 hours. 8 AM: Tylenol 11 AM: Ibuprofen 2 PM: Tylenol 5 PM: Ibuprofen 8 PM: Tylenol 11 PM: Ibuprofen 2 AM: Tylenol 5 AM: Ibuprofen -Antihistamine medication such as Benadryl/Zyrtec at night and Claritin/Emilee during the day can help improve symptoms. -Use Flonase twice a day for 5 days then daily to help reduce the inflammation and dry up your sinuses. -You can also use Sudafed behind the pharmacy counter(12 or 24 hour). Be sure to drink plenty of water with these medications at least 8 ounces with every dose and it is important to drink 8 to 10 glasses of water per day. Water is a natural decongestant -Eat and drink things that are easy to swallow, like tea or soup, or popsicles. -Oral rinses such as: Salt water gargles and/or may use topical anesthetic (eg. Chloraseptic spray) or lozenges to relieve dryness or throat pain). -Frequent hand washing or hand air drill operator is one of the best ways to prevent spread of infection. -Using a vaporizer or humidifier at night will also help thin secretions and help with coughing up phlegm. Call your Primary Care Doctor and make a follow-up appointment in 3 days. If your cough worsens, you develop a fever greater than 103, you develop shaking chills, a fast heartbeat, trouble breathing and/or feel you are are breathing much faster than usual, call your Primary Care Doctor or go to the ER. Your blood pressure was elevated above 120/80 today at Urgent Care. This puts you above the threshold for follow up visit with a primary care provider. High blood pressure does not usually cause any symptoms, however it may lead to kidney failure, stroke, heart disease just to name a few if untreated . Many people are anxious when seeing a provider or nurse. As a result, you are not diagnosed with hypertension at this time unless your blood pressure is persistently high at two office visits at least one week apart. Some things that can help lower blood pressure are lifestyle modifications, such as light exercise, decreased salt in diet, and weight loss. It is important to follow up with a PCP about this within 1 week. Patient Language: Bahraini Prescriptions: No Action atenolol 25 mg tablet 50 mg PO QAM quinapril-hydrochlorothiazide 20-12.5 mg tablet 3 tablet PO QAM sertraline 50 mg tablet 50 mg PO QAM amlodipine-atorvastatin 10-10 mg tablet 1 tablet PO QAM losartan-hydrochlorothiazide 100-25 mg tablet insulin lispro [Humalog KwikPen Insulin] 100 unit/mL insulin pen SUBCUT insulin glargine U-300 conc [Toujeo Max U-300 SoloStar] 300 unit/mL (3 mL) insulin pen SUBCUT potassium chloride 10 mEq tablet extended release 10 meq PO DAILY gabapentin 300 mg capsule 300 mg PO HS omega 5-odu-akh-fish oil [Fish Oil] 1,000 mg (120 mg-180 mg) capsule 1 cap PO DAILY cholecalciferol (vitamin D3) 125 mcg (5,000 unit) capsule 125 mcg PO DAILY multivitamin Tablet 1 tablet PO DAILY Culturelle Probiotic-Multivit 1 billion cell- 1 gram Tablet,Chewable 1 tablet PO DAILY doxazosin 2 mg tablet 2 mg PO QAM Follow-up/Referrals: Svitlana,Milly Ashley DO [Primary Care Provider, Unknown] - 3 Days Time of Disposition: 14:41
[2025-07-18 13:56] VITALS: BP 166/73; PULSE 82; RESP 18; TEMP 36.7; O2SAT 98
[2025-07-18 14:16] LABS: EDCOVIDSCREEN Negative (Negative); EDINFLUASCREEN Negative (Negative); EDINFLUBSCREEN Negative (Negative); EDSTREPNEGPOS1 Negative (Negative)
== END 2025-07-18 14:30 | disposition home or self-care (01) ==
PROVIDERS: Emergency Provider Nurse Practitioner Family; PCP Internal Medicine
DX: J06.9 Acute upper respiratory infection, unspecified (principal); Z20.822 Contact with and (suspected) exposure to COVID-19; I10 Essential (primary) hypertension; E78.00 Pure hypercholesterolemia, unspecified; E10.9 Type 1 diabetes mellitus without complications; Z79.4 Long term (current) use of insulin; F41.9 Anxiety disorder, unspecified; F32.A Depression, unspecified; Z85.46 Personal history of malignant neoplasm of prostate
CPT/HCPCS: 87081; 87426; 87804; 87880; 99213; G0463